=== PATIENT | male | born 1975 | race Caucasian/White ===

== ENCOUNTER 2019-01-14 11:39 | Emergency (ER) | payer SELFPAY ==
[~2019-01-14] VITALS: Ht 187.9 cm; Wt 78.1 kg
--- NOTE | 2019-01-14 12:10 | ED General ---
General Stated Complaint: LT SIDED FACIAL PARALYSIS Source of Information: Patient, Family Exam Limitations: No Limitations History of Present Illness Date Seen by Provider: Jan 14, 2019 Time Seen by Provider: 12:05 Initial Comments 43-year-old male presents with onset of left sided facial weakness since yesterday morning. Has remained constant since onset. Denies any other weakness, speech difficulty, dizziness, headache or difficulty walking. Denies previous occurrence of similar weakness. Unable to shut his left eye. No visual changes. Allergies and Home Medications Home Medications Acyclovir 800 Mg Tablet, 800 MG PO TID Prescribed by: ISHMAEL SHARMA on 01/14/19 1212 Prednisone 50 Mg Tab, 50 MG PO DAILY Prescribed by: ISHMAEL SHARMA on 01/14/19 1212 Patient Home Medication List Home Medication List Reviewed: Yes Review of Systems Review of Systems Constitutional: see HPI; No dizziness, No fever, No malaise, No weakness EENTM: see HPI, other (can't shut left eye); No ear pain, No blurred vision, No double vision, No eye pain, No tearing, No vision loss, No hoarseness, No mouth pain, No mouth swelling, No nose congestion, No nose pain, No throat pain, No throat swelling Respiratory: no symptoms reported Cardiovascular: no symptoms reported Skin: no symptoms reported Psychiatric/Neurological: See HPI, Numbness, Weakness, Other (left facial numbness and weakness) Past Svnktel-Ahsnix-Obgscr Hx Past Med/Social Hx: Reviewed Nursing Past Med/Soc Hx Patient Social History Recent Foreign Travel: No Physical Exam Vital Signs Vital Signs - First Documented 01/14/19 11:45 Temp 36.4 Pulse 100 Resp 14 B/P (MAP) 104/70 (81) Pulse Ox 95 O2 Delivery Room Air Capillary Refill : Height, Weight, BMI Height: '" Weight: lbs. oz. kg; BMI Method: General Appearance: No Apparent Distress, WD/WN HEENT: PERRL/EOMI, TMs Normal, Normal ENT Inspection, Pharynx Normal Neck: Full Range of Motion, Normal Inspection, Non Tender, Supple Extremity: Normal Capillary Refill, Normal Inspection, Normal Range of Motion, Non Tender, No Calf Tenderness, No Pedal Edema Neurologic/Psychiatric: Alert, Oriented x3, Normal Mood/Affect; No Abnormal Gait, No Aphasia, No Depressed Affect, No Disoriented; Facial Droop (left sided, affected forehead. unable to close left eyelid or raise left eyebrow.) Skin: Normal Color, Warm/Dry; No Rash Progress/Results/Core Measures Suspected Sepsis SIRS Temperature: Pulse: Respiratory Rate: Blood Pressure / Mean: Results/Orders Vital Signs/I&O 01/14/19 01/14/19 11:45 12:35 Temp 36.4 36.4 Pulse 100 100 Resp 14 14 B/P (MAP) 104/70 (81) 104/70 (81) Pulse Ox 95 95 O2 Delivery Room Air Capillary Refill : Departure Impression Primary Impression: Jha's palsy Disposition: HOME, SELF-CARE Condition: Stable Departure-Patient Inst. Decision time for Depature: 12:10 Referrals: [facility] Patient Instructions: Jha's Palsy (DC) Scripts Acyclovir (Acyclovir) 800 Mg Tablet 800 MG PO TID, #30 TAB Prov: ISHMAEL SHARMA DO 01/14/19 Prednisone (Prednisone) 50 Mg Tab 50 MG PO DAILY, #7 TAB Prov: ISHMAEL SHARMA DO 01/14/19 ISHMAEL SHARMA DO Jan 14, 2019 12:10 POS
[2019-01-14] MEDS ORDERED: ACYC800T PO (12:12)
[2019-01-14] MEDS ORDERED: PRD50T PO (12:12)
[2019-01-14 12:35] VITALS: BP 104/70
== END 2019-01-14 12:31 | disposition home or self-care (01) ==
LOC: ER FS 11:42
DX: G51.0 Bell's palsy (principal)
CPT/HCPCS: 99283

== ENCOUNTER → 2021-11-22 | Outpatient (CLI) | payer MEDICAID ==
[~2021-11-22] MED LIST: ACYC-112 PO; PRD50T PO
--- NOTE | 2021-11-22 13:57 | Diagnostic Imaging Report ---
INDICATION: Degenerative disease. FINDINGS: The lumbar statures are normal and the alignment is anatomic. There is mild degenerative narrowing of the L5-S1 disc space. No acute endplate irregularity. No fracture. IMPRESSION: Very mild degenerative changes aligned anatomically. No acute appearing abnormality. Dictated by: Dictated on workstation # [id number]
--- NOTE | 2021-11-22 14:08 | Diagnostic Imaging Report ---
INDICATION: Chronic degenerative disc disease COMPARISON: None FINDINGS: Frontal and lateral views of the thoracic spine were obtained. Visualization of the upper thoracic spine is limited on the lateral projection. Alignment and vertebral heights are maintained. There is no fracture or destructive process. There are no large paraspinal masses. Limited views of the lungs are clear. IMPRESSION: 1. No acute fracture or dislocation of the thoracic spine. Dictated by: Dictated on workstation # [id number]
== END ==
LOC: RAD FS 10:15
PROVIDERS: ATTEND Nurse Practitioner Family
DX: M47.816 Spondylosis without myelopathy or radiculopathy, lumbar region (principal); M51.36 Other intervertebral disc degeneration, lumbar region
CPT/HCPCS: 72070; 72100